=== PATIENT | female | born 1970 | race Caucasian/White ===

== ENCOUNTER 2017-09-17 16:46 | Emergency (ER) | payer OTHER, BC, MEDICARE | END 2017-09-17 18:40 | disposition home or self-care (01) | LOC: FTE 16:46 | DX: L02.519 Cutaneous abscess of unspecified hand (principal); Z79.82 Long term (current) use of aspirin | CPT/HCPCS: 99284 ==

== ENCOUNTER 2018-12-23 13:30 | Emergency (ER) | payer MEDICARE, BC, OTHER ==
[2018-12-23] MEDS: ONDANSETRON 4 MG INJ IV (14:40)
[2018-12-23] MEDS: ACETAMINOPHEN 325 MG TAB PO (14:40)
[2018-12-23] MEDS: IBUPROFEN 600 MG TAB PO (17:14)
== END 2018-12-23 20:54 | disposition home or self-care (01) ==
LOC: E/R 13:30
DX: B34.9 Viral infection, unspecified (principal); F32.9 Major depressive disorder, single episode, unspecified; R40.2142 Coma scale, eyes open, spontaneous, at arrival to emergency department; R40.2252 Coma scale, best verbal response, oriented, at arrival to emergency department; R07.9 Chest pain, unspecified; R10.9 Unspecified abdominal pain; Z79.82 Long term (current) use of aspirin
CPT/HCPCS: 36415; 71045; 80053; 80307; 81001; 81003; 81025; 83605; 84484; 85025; 85610; 85730; 87040-91; 87086; 93005; 96374; 99285-25